=== PATIENT | male | born 1985 | race American Indian/Alaskan Native ===

== ENCOUNTER 2020-06-12 07:08 | Emergency (ER) | payer OTHER ==
[2020-06-12] MEDS ORDERED: METOCLOPRAMIDE 10 MG/2 ML INJ IV ONE (07:32)
[2020-06-12] MEDS ORDERED: diphenhydrAMINE 50 MG/ML VIAL IV ONE (07:32)
[2020-06-12] MEDS ORDERED: LACTATED RINGERS 1,000 ML IV ONE ×2 (07:32→08:34)
[2020-06-12 07:51] LABS: Basophils % (Auto) 0.4 % (0.0-1.8); Eosinophils % (Auto) 0.4 % (0.0-4.3); Hematocrit 46.1 % (35.5-45.6); Hemoglobin 15.6 gm/dl (11.8-15.2); Lymphocytes # (Auto) 1.7 K/mm3 (1.2-5.4); Lymphocytes % (Auto) 17.7 % (13.4-35.0); Mean Corpuscular HGB Conc 34 % (32-34); Mean Corpuscular Volume 84 fl (84-94); Monocytes # (Auto) 0.7 K/mm3 (0.0-0.8); Monocytes % (Auto) 7.3 % (0.0-7.3); Platelet Count 192 K/mm3 (140-440); Red Blood Count 5.52 M/mm3 (3.65-5.03); Red Cell Distribution Width 13.3 % (13.2-15.2)
--- NOTE | 2020-06-12 07:51 | Emergency Department Report ---
ED General Adult HPI - General Chief complaint: Abdominal Pain Stated complaint: ABD PAIN/NAUSEA VOMITING X1 WK PUI?: No Time Seen by Provider: 06/12/20 07:29 Source: EMS Mode of arrival: Ambulatory Limitations: No Limitations - History of Present Illness Initial comments: 34-year-old male with history of type 1 diabetes and diabetic gastroparesis presenting with chief complaint of continued abdominal pain and vomiting, initia l onset about 1 week ago. He was seen here several days ago and admitted for mild diabetic ketoacidosis and was discharged on 06/10. He states the symptoms have worsened again and states that the pain in his abdomen is typical of his gastroparesis flares. He denies any fevers, diarrhea, cough, congestion, shortness of breath or any other symptoms. Symptoms are severe, gradual in onset, nonradiating with no exacerbating or alleviating factors. Severity scale (0 -10): 8 Consistency: constant - Related Data Previous Rx's Medication Instructions Recorded Last Taken Type Insulin Lispro [Humalog] 0 unit SUB-Q ACHS #1 vial 06/09/20 Unknown Rx Insulin NPH/Regular [NovoLIN 70/30] 20 unit SUB-Q BIDDIAB #1 vial 06/09/20 Unknown Rx Pantoprazole [Protonix TAB] 40 mg PO QDAY #30 tablet 06/09/20 Unknown Rx Metoclopramide HCl [Reglan TAB] 10 mg PO TIDAC #30 tablet 06/12/20 Unknown Rx Allergies Allergy/AdvReac Type Severity Reaction Status Date / Time No Known Allergies Allergy Verified 06/06/20 15:27 ED Review of Systems ROS: Stated complaint: ABD PAIN/NAUSEA VOMITING X1 WK Other details as noted in HPI Comment: All other systems reviewed and negative Gastrointestinal: as per HPI ED Past Medical Hx - Past Medical History Previous Medical History?: Yes Hx Congestive Heart Failure: No Hx Diabetes: Yes - Surgical History Past Surgical History?: No - Social History Smoking Status: Never Smoker Substance Use Type: None - Medications Home Medications: Home Medications Medication Instructions Recorded Confirmed Last Taken Type Insulin Lispro [Humalog] 0 unit SUB-Q ACHS #1 vial 06/09/20 Unknown Rx Insulin NPH/Regular [NovoLIN 70/30] 20 unit SUB-Q BIDDIAB #1 vial 06/09/20 Unknown Rx Pantoprazole [Protonix TAB] 40 mg PO QDAY #30 tablet 06/09/20 Unknown Rx Metoclopramide HCl [Reglan TAB] 10 mg PO TIDAC #30 tablet 06/12/20 Unknown Rx ED Physical Exam - General Limitations: No Limitations General appearance: alert, other (Dry heaving) - Head Head exam: Present: atraumatic, normocephalic - Eye Eye exam: Present: normal appearance - ENT ENT exam: Present: mucous membranes moist - Neck Neck exam: Present: normal inspection - Respiratory Respiratory exam: Present: normal lung sounds bilaterally. Absent: respiratory distress - Cardiovascular Cardiovascular Exam: Present: regular rate, normal rhythm. Absent: systolic murmur, diastolic murmur, rubs, gallop - GI/Abdominal GI/Abdominal exam: Present: soft, tenderness (Diffusely), normal bowel sounds. Absent: distended, guarding, rebound, rigid - Rectal Rectal exam: Present: deferred - Extremities Exam Extremities exam: Present: normal inspection - Back Exam Back exam: Present: normal inspection - Neurological Exam Neurological exam: Present: alert, oriented X3 - Psychiatric Psychiatric exam: Present: normal affect, normal mood - Skin Skin exam: Present: warm, dry, intact, normal color. Absent: rash ED Course Vital Signs 06/12/20 07:50 Temperature 99.0 F Pulse Rate 100 H Respiratory 22 Rate Blood Pressure 167/97 [Right] O2 Sat by Pulse 100 Oximetry ED Medical Decision Making - Lab Data Result diagrams: 06/12/20 07:31 06/12/20 12:08 - Medical Decision Making Patient with history of diabetic gastroparesis and type 1 diabetes presenting with vomiting. He was admitted a few days ago for mild DKA and discharged on June 10. He presents this morning because symptoms have worsened. Denies any other new complaints. Abdominal pain is typical of his prior flares. On my exam he is dry heaving and has some mild diffuse abdominal tenderness. We will check labs, give IV fluids, Reglan, Benadryl and then reassess Much improved after Haldol, no further vomiting, labs were repeated showing an improvement in anion gap. Venous pH is normal no evidence of diabetic ketoacidosis today. Able to tolerate oral fluids, follow-up PCP. Return if worse. - Differential Diagnosis Gastroparesis, diabetic ketoacidosis, dehydration Critical care attestation.: If time is entered above; I have spent that time in minutes in the direct care of this critically ill patient, excluding procedure time. ED Disposition Clinical Impression: Diabetic gastroparesis Disposition: DC-01 TO HOME OR SELFCARE Is pt being admited?: No Condition: Good Instructions: Diabetes Mellitus Type 2 in Adults (ED) Prescriptions: Metoclopramide HCl [Reglan TAB] 10 mg PO TIDAC #30 tablet Referrals: PRIMARY CARE, [Primary Care Provider] - 3-5 Days Time of Disposition: 12:51
[2020-06-12 08:13] LABS: Alanine Aminotransferase 12 units/L (7-56); Albumin 4.5 g/dL (3.9-5); BUN/Creatinine Ratio 19; Blood Urea Nitrogen 15 mg/dL (9-20); Calcium 9.8 mg/dL (8.4-10.2); Hemolysis Index 2
[2020-06-12] MEDS ORDERED: HALOPERIDOL LACTATE 5 MG/1 ML INJ IM ONE (09:38)
[2020-06-12 10:34] LABS: Bilirubin,Urine NEG (Negative); Blood,Urine NEG (Negative); Color,Urine Yellow (Yellow); Mucus,Urine FEW /HPF; Protein,Urine <15 mg/dL mg/dL (Negative); RBC,Urine < 1.0 /HPF (0.0-6.0)
[2020-06-12 12:38] LABS: Blood Urea Nitrogen 13 mg/dL (9-20); Calcium 9.2 mg/dL (8.4-10.2); Hemolysis Index 7
[2020-06-12 12:40] LABS: BUN/Creatinine Ratio 22
[2020-06-12 19:13] VITALS: BP 165/91
== END 2020-06-12 13:59 | disposition home or self-care (01) ==
LOC: ED 07:08
DX: E11.43 Type 2 diabetes mellitus with diabetic autonomic (poly)neuropathy (principal); K31.84 Gastroparesis; Z79.4 Long term (current) use of insulin; Z79.899 Other long term (current) drug therapy
CPT/HCPCS: 36415; 80048; 80053; 81001; 82010; 82805; 82962; 83690; 85025; 96361; 96372; 96374; 96375; 99284; J1200; J1630; J2765; J7120